=== PATIENT | female | born 1945 | race Caucasian/White ===

== ENCOUNTER 2016-11-14 09:25 | Inpatient (IN) | payer MEDICARE, BC ==
[2016-11-14] MEDS ORDERED: Ticagrelor* 90 MG TAB PO ONE (09:32)
[2016-11-14] MEDS ORDERED: Heparin for STEMI(*) 5,000 UNITS/ML 1 ML VIAL IV ONE (09:32)
[2016-11-14] MEDS ORDERED: Heparin(*) 1000 UNIT/ML 10 ML VIAL CATH LAB IV ONE (09:36)
[2016-11-14] MEDS ORDERED: VERAPAMIL 2.5 MG/ML 4 ML VIAL ONE (09:36)
--- NOTE | 2016-11-14 10:00 | ED ---
Jayda Candelaria Alfonso, scribed for Anamika Bearden MD on 11/14/16 at 0932 . 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 Consulted Dr. Kohler (detacher) at 0921 who will see the patient in the ED. This patient is a 71 year old F BIBA to [facility] with a chief complaint of CP since two days ago. She denies CP at time of evaluation. Pt states pain seemed somewhat positional. Pt denies SOB, nausea, diaphoresis. Pt was given ASA by EMS. Pt developed left UE paresthesia enroute which was relieved by 2 nitro enroute. Pt wth HTN - no DM, HLD, CVA, CAD, anticoagulation. Dr. Kohler ( detacher) present at bedside when pt arrives to the ED. She denies PMHx of CVA. PMHx of HTN, fibromyalgia, and osteoarthritis. Patients medication reviewed this visit. After evaluating the patient in the ED, Dr. Kohler admits the patient to the concrete mixing plant laborer. - History of Current Complaint Time Seen by Provider: 11/14/16 09:31 Hx Obtained From: Patient, EMS Onset/Duration: Started Days Ago - 2, Resolved Timing: Intermittent Initial Severity: Moderate Current Severity: Moderate Pain Intensity: 0 Pain Scale Used: 0-10 Numeric Chest Pain Radiates: Yes Chest Pain Radiates To:: Arm - left Aggravating Factor(s): Position Alleviating Factor(s): NTG 123, OTC Meds - ASA Associated Signs and Symptoms: Positive: Negative, Other: - Patient reports arm pain (resolved). - Allergy/Home Medications Allergies/Adverse Reactions: Allergies Allergy/AdvReac Type Severity Reaction Status Date / Time Sertraline [From Zoloft] Allergy Diarrhea Verified 01/08/15 14:37 Tramadol Allergy Hallucinati Verified 01/08/15 14:37 ons PMH/Surg Hx/FS Hx/Imm Hx Previously Healthy: Yes Endocrine/Hematology History: Denies: Hx Anticoagulant Therapy, Hx Diabetes Cardiovascular History: Reports: Hx Hypertension Denies: Hx Pacemaker/ICD History: Denies: Hx Renal Disease Musculoskeletal History: Reports: Other Musculoskeletal History - fibromyalgia, and osteoarthritis Sensory History: Denies: Hx Hearing Aid Neurological History: Denies: Hx CVA Psychiatric History: Denies: Hx Panic Disorder - Cancer History Hx Chemotherapy: No Hx Radiation Therapy: No - Surgical History Surgery Procedure, Year, and Place: DAVID KNEE REPLACEMENTS. DAVID HIP REPLACEMENT. CHOLECYTECTOMY - Family History Known Family History: Positive: Cardiac Disease, Diabetes - Social History Occupation: Unemployed Lives: Alone Alcohol Use: None Hx Substance Use: No Smoking Status (MU): Heavy Every Day Tobacco Smoker - 1 PPD Review of Systems Constitutional: Negative Positive: Photophobia ENT: Negative Positive: Chest Pain - resolved s/p ntg Respiratory: Negative Gastrointestinal: Negative Genitourinary: Negative Musculoskeletal: Negative Positive: Other - Left arm pain Skin: Negative Neurological: Negative Psychological: Normal All Other Systems Reviewed And Are Negative: Yes Physical Exam Triage Information Reviewed: Yes Vital Signs On Initial Exam: Initial Vitals Temp Pulse Resp BP Pulse Ox 98.1 F 107 20 127/75 98 11/14/16 09:40 11/14/16 09:40 11/14/16 09:40 11/14/16 09:40 11/14/16 09:40 Vital Signs Reviewed: Yes Appearance: Positive: Well-Appearing, No Pain Distress, Well-Nourished Skin: Positive: Warm, Skin Color Reflects Adequate Perfusion, Dry Head/Face: Positive: Normal Head/Face Inspection Eyes: Positive: Normal ENT: Positive: Hearing grossly normal Neck: Positive: Supple Respiratory/Lung Sounds: Negative: Unable to speak in full sentences Cardiovascular: Positive: RRR Musculoskeletal: Positive: Normal Neurological: Positive: Normal, Sensory/Motor Intact. Negative: Facial Droop, Slurred Speech Psychiatric: Positive: Normal AVPU Assessment: Alert - Paulina Coma Scale Best Eye Response: 4 - Spontaneous Best Motor Response: 6 - Obeys Commands Best Verbal Response: 5 - Oriented Diagnostics - Laboratory Result Diagrams: 11/14/16 09:55 11/14/16 09:55 Lab Statement: Any lab studies that have been ordered have been reviewed, and results considered in the medical decision making process. - EKG 0925 Cardiac Rate: NL - BPM 70 EKG Rhythm: Sinus Rhythm EKG Interpretation: ST ELEVATION IN ANTERIOR AND LATERAL LEADS. STEMI. Chest Pain Course/Dx - Course Assessment/Plan: Pt with 2 days chest pain and developed left arm pain enroute. Pt with given ASA and 2 nitro enroute with complete resolution. STEMI called enroute. Pt without complaint upon arrival to ED. Dr. Kohler / cath team at bedside upon arrival - pt to concrete mixing plant laborer. Heparin 4000unit bolus and Brilinta 180mg given per Dr. Kohler direction - Chest Pain Differential Diagnosis/HQI/PQRI: Acute IN - Diagnoses Provider Diagnoses: STEMI (ST elevation myocardial infarction) During the Visit The Following Alert/Code Occurred: STEMI - 917 PIT WORKER POWER SHOVEL - Provider Notifications Discussed Care Of Patient With: Beny Kohler Time Discussed With Above Provider: 09:21 Instructed by Provider To: Admit As Inpatient - Consulted Dr. Kohler ( detacher) at 920 who will see the patient in the ED. After evaluating the patient in the ED, Dr. Kohler admits the patient to the concrete mixing plant laborer. 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
[2016-11-14 10:10] LABS: Hematocrit 45 % (35-47); Hemoglobin 14.9 g/dl (12.0-16.0); Mean Corpuscular HGB Conc 33 g/dl (31-36); Mean Corpuscular Hemoglobin 29 pg (27-31); Mean Corpuscular Volume 87 fL (80-97); Mean Platelet Volume 8 um3 (7.4-10.4); Red Cell Distribution Width 14 % (10.5-15); White Blood Count 8.4 10^3/ul (3.5-10.8)
[2016-11-14] MEDS ORDERED: nitroGLYCERIN DRIP* 250 ML ONE ×2 (10:17→10:55)
[2016-11-14] MEDS ORDERED: Iohexol 350 (CONTRAST) 200 ML MDV IV ONE ×2 (10:22→10:55)
[2016-11-14 10:26] LABS: Albumin 3.6 g/dL (3.2-5.2); BUN/Creatinine Ratio 19.5 (8-20); Calcium 9.1 mg/dL (8.6-10.3); EGFR African American 88.4 (>60); EGFR Non-African American 68.7 (>60); Globulin 3.1 g/dL (2-4); Magnesium 1.7 mg/dL (1.9-2.7); Potassium 3.8 mmol/L (3.5-5.0); Total Bilirubin 0.4 mg/dL (0.2-1.0); Total Protein 6.7 g/dL (6.4-8.9)
[2016-11-14] MEDS ORDERED: Bivalirudin(*) 250 MG VIAL ONE (10:29)
[2016-11-14 10:38] LABS: Troponin I 0.31 ng/mL (<0.04)
[2016-11-14] MEDS ORDERED: Nitroglycerin TAB 0.4 MG* 0.4 MG TAB SL PRN (10:48)
[2016-11-14] MEDS ORDERED: Acetaminophen TAB* 325 MG PO PRN (10:50)
[2016-11-14] MEDS ORDERED: Docusate CAP* 100 MG PO PRN (10:50)
[2016-11-14] MEDS ORDERED: fentaNYL* 50 MCG/ML 2 ML VIAL (100 MCG VIAL) ONE (10:54)
[2016-11-14] MEDS ORDERED: Midazolam* 1 MG/ML 5 ML VIAL (5 MG) ONE (10:54)
[2016-11-14] MEDS ORDERED: Heparin 2 UNITS/ML IVPREMIX* 2,000 ML IV ONE (10:55)
[2016-11-14] MEDS ORDERED: Lidocaine 1% INJ* 10 MG/ML 30 ML SDV ONE (10:55)
[2016-11-14] MEDS ORDERED: Metoprolol Tartrate TAB* 25 MG PO SCH (11:00)
[2016-11-14] MEDS ORDERED: NS 0.9% 1000 ML* 1,000 ML IV SCH (11:00)
[2016-11-14] MEDS ORDERED: Atorvastatin* 80 MG TAB PO ONE (11:15)
[2016-11-14] MEDS: Metoprolol Succinate XL TAB* 50 MG PO SCH (13:10)
[2016-11-14] MEDS: oxyCODONE/Acetamin 5/325 MG* TAB PO PRN (15:08)
[2016-11-14] MEDS: Atorvastatin* 80 MG TAB PO SCH (16:10)
[2016-11-14] MEDS: Captopril TAB* 12.5 MG PO SCH ×2 (16:11→21:14)
[2016-11-14] MEDS ORDERED: nitroGLYCERIN DRIP* 25,000 MCG in PREMIX* 0 ML IV SCH (18:00)
[2016-11-14 20:29] LABS: Troponin I 6.87 ng/mL (<0.04)
--- NOTE | 2016-11-14 20:33 | HP ---
ADMISSION HISTORY AND PHYSICAL: DATE OF ADMISSION: 11/14/16 CHIEF COMPLAINT: The patient presents via ambulance in the field with ST- segment elevation, anterior wall myocardial infarction. HISTORY OF PRESENT ILLNESS: The patient is a 71-year-old female with no prior known cardiac history. Specifically, she denies any history of myocardial infarction, congestive heart failure, or significant heart rhythm disturbance. It should be noted that the patient was borderline belligerent throughout my evaluation, as well as her dealings with the emergency room staff and initially with the stucco laborer staff. The most that I could glean from her history that she has been having chest discomfort intermittent nature on and off for the past couple of days. Today it became constant, she called the paramedics. Initial EKG raised the question of mild ST-segment elevations and a STEMI alert was called in the field. Repeat EKG done in the emergency room confirms this with ST-segment elevations seen in the precordial leads. She was noted to be feeling moderately uncomfortable with chest discomfort and bilateral arm discomfort, denying any significant shortness of breath or diaphoresis. En route, she was given aspirin therapy. In the emergency room, she was given 4000 units bolus of heparin and 180 mg of Brilinta in preparation to proceed to the cardiovascular laboratory after the risks and benefits were explained and she wished to proceed. CARDIAC RISK FACTORS: Include, although she states no history of hypertension, she does have a history of hypertension. She denies any history of hyperlipidemia, denies any diabetes. She does smoke and denies any significant family history of early coronary artery disease. PAST MEDICAL HISTORY: Significant for fibromyalgia in addition to osteoarthritis and hypertension as mentioned. She has obesity and apparently has irritable bowel syndrome. In the somewhat remote past, she had a history of hematuria. She has history of back pain as well and a question was raised of underlying lung disease for which she is on bronchodilators. PAST SURGICAL HISTORY: 1. Status post cholecystectomy in 2010. 2. Status post knee surgery in 2010 with both knees replaced. 3. Status post hip surgery in 2009 to both hips. REVIEW OF SYSTEMS: Pertinent to proceeding with cardiovascular lab. She denies any significant history of bleeding. She denies any TIA or any stroke. She denies any history of kidney dysfunction and denies any history of allergy to contrast liquid. PHYSICAL EXAMINATION GENERAL: When I see her in the emergency room, reveals an obese female, borderline belligerent in nature as mentioned above. VITAL SIGNS: Reveal blood pressure 127/75, pulse 107, afebrile, respirations 20 , O2 saturation 98%. HEENT: Conjunctivae pink. Sclerae clear. Mouth reveals moist mucosa. NECK: Supple. No increased JVP. Carotid has fair upstroke in volume. I do not appreciate bruits or transmitted murmur. LUNGS: Reveal no accessory muscle usage. There is fair to good excursion. There is no active rales, rhonchi, or wheezes. HEART: Reveals no visible heaves. No palpable heaves or thrills. Normal S1, S2. No significant S3, S4 gallop. No significant murmur. ABDOMEN: Obese. Soft, nontender. I cannot accurately access for organomegaly. EXTREMITIES: Without clubbing, cyanosis or karla pitting edema. Peripheral pulses are intact. Femoral pulse present. No significant bruits. Right radial artery pulse present as well. NEUROLOGIC: The patient is alert, oriented with normal mentation. MUSCULOSKELETAL: Patient moves all extremities appropriate. PSYCHOLOGICAL: Patient is borderline belligerent as discussed above. DIAGNOSTIC STUDIES/LAB DATA: Electrocardiogram in the emergency room reveals sinus rhythm. Heart rate is 70, MI interval is 0.14, QRS is 0.08, QT is 0.39, axis is -15 degrees. There is J-point elevation diffusely seen in V1 through V3 , mildly into V4 and 5. OVERALL ASSESSMENT: Ms. Gage presents now with EKG findings suggestive with acute ST-segment elevation, anterior wall myocardial infarction. The risks and benefits were explained to her. She understands them and wishes to proceed. She has already received heparin, Brilinta and aspirin, and further management will be made pending the results of the cardiac catheterization in the stucco laborer. Blood work will be drawn for basic laboratory results in the cardiovascular laboratory. [id number]/[facility] #: [id number] MARIMAR
[2016-11-14] MEDS ORDERED: amLODIPine TAB* 5 MG ONE (21:01)
[2016-11-14] MEDS: amLODIPine TAB* 5 MG PO SCH (21:05)
[2016-11-14] MEDS: Ticagrelor* 90 MG TAB PO SCH (21:15)
[2016-11-14] MEDS: Zolpidem TAB* 5 MG PO PRN (23:26)
[2016-11-14] MEDS: Ondansetron INJ* 2 MG/ML VIAL IV PRN (23:26)
[2016-11-14 23:55] LABS: Troponin I 12.19 ng/mL (<0.04)
[2016-11-15] MEDS ORDERED: Captopril TAB* 12.5 MG PO ONE (00:28)
[2016-11-15] MEDS ORDERED: Diazepam TAB(*) 5 MG ONE (00:34)
[2016-11-15] MEDS ORDERED: Captopril TAB* 12.5 MG ONE (00:34)
[2016-11-15] MEDS: oxyCODONE/Acetamin 5/325 MG* TAB PO PRN ×2 (00:40→09:01)
--- NOTE | 2016-11-15 02:20 | CATH ---
CC: Laurie Macedo NP * CARDIAC CATHETERIZATION AND INTERVENTIONAL REPORT: DATE OF STUDY: 11/14/16 INDICATIONS FOR THE PROCEDURE: Patient with ST segment elevation, anterior wall myocardial infarction. DESCRIPTION OF PROCEDURE: The patient was interviewed and examined in the emergency room where the risks and benefits were explained. She understood them and wished to proceed. The patient had received 4000 units of heparin in the emergency room, 180 mg of Brilinta as well as a full dose aspirin by ambulance in route. The patient was brought to the cardiovascular laboratory where the right radial artery was assessed and found to be an eligible site for approach. The patient was prepped and draped in sterile fashion. Right radial artery area was anesthetized with 1% lidocaine, right radial artery was cannulated and a 6.5-Merit Prelude sheath was placed. The patient received 300 mcg of IV nitroglycerin as well as 3 mg of verapamil intraarterial. A 5-[place]atorial [place] TIG-4 catheter was advanced to the ascending aorta to perform right coronary artery angiography. This catheter was then exchanged for 6-[place] VL3.5 curve guide catheter, advanced to the left coronary artery, guiding views were obtained. ACT was shown and found to be subtherapeutic, as such patient was treated with Angiomax bolus and Angiomax drip was started. A 0.014 All Star wire was advanced down the left anterior descending artery through the total occlusion and balloon angioplasty was performed there into a more distal lesion. A 3.0 x 38 mm long Synergy drug-eluting stent was deployed following with high pressure noncompliant balloon inflation utilizing a 3.0 x 12 mm long NC Emerge balloon. Following this, a 5-Equatorial [place] pigtail catheter was advanced to the ascending aorta where central aortic pressure was recorded. Catheter was then passed across the aortic valve into the left ventricle where the left ventricular pressure was recorded. Left ventriculography was performed utilizing a total of 20 cc of Omnipaque dye at a rate of 10 cc per second. A catheter was pulled across the aortic valve to recheck gradient. At the end of the case, the catheter was removed and the sheath was removed and hemostasis was obtained with a Vasc Band in place. The reverse Barbeau was a C. The total contrast used was 210 cc of Omnipaque dye, the radiation exposure included 13.4 minutes of fluoro time. The air kerma radiation was 2083 milligray, the DAP radiation was 95920 microgray per meter squared. RESULTS: LEFT HEART CATHETERIZATION: Central aortic pressure was recorded at 140/90 with a mean of 113, left ventricular pressure 142 with left ventricular end-diastolic pressure of 13 to 16. LEFT VENTRICULOGRAPHY: Performed in the SHEARER projection revealed severe apical and distal anterior wall hypokinesis. Unfortunately, a run of ventricular tachycardia occurred making overall ejection fraction impossible to assess. The proximal portion of the LV had hyperdynamic LV function with some narrowing at the outflow tract. CORONARY ARTERIOGRAPHY: A. Left coronary artery: 1. Left main, widely patent. 2. Left anterior descending artery: Left anterior descending artery was found to be totally occluded in its midportion after the first two diagonal branches and first septal nutrition tech. On placement of the wire, a significant critical lesion was seen distal to this area, which did not respond significantly to nitroglycerin. The rest of the left anterior descending artery had no significant lesion seen. 3. Circumflex artery - a nondominant vessel supplying a very thin first and second obtuse marginal branches with 3 moderate size obtuse marginal branches and a middle segment continuing at the 2 thin low lying posterior left ventricular branches. There was a narrowing seen within the circumflex area in its midportion of approximately 45 to 50%. This was just after the first of the 3 mid obtuse marginal branches. The rest of the circumflex had mild luminal irregularities. B. Right coronary artery - a dominant vessel supplying multiple acute marginal branches and ending in a posterior descending artery. The proximal portion of the right coronary artery had a narrowing noted to be as much as 70% to 75%. The rest of the right coronary artery had no significant obstruction seen. INTERVENTION INTO MID LAD AND MID TO DISTAL LAD: Successful reconstitution of totally occluded LAD and intervention into 80% to 85% mid to distal lesion in LAD with balloon angioplasty and placement of a 3.0 x 38 mm long Synergy drug-eluding stent post dilated 3.1 to 3.2 mm with a JELENA-3 flow, no dissection seen and 0% residual stenosis. OVERALL ASSESSMENT: Multivessel disease with totally occluded mid left anterior descending reconstituted with balloon angioplasty and stent placement as described above. Residual significant right coronary artery lesion will need to be addressed at some point in time. Moderate disease noted in the circumflex artery with consideration of possible fractional flow reserve analysis of that lesion as well. Dual antiplatelet therapy with aggressive cholesterol lowering agents in addition to aggressive weight reduction are paramount to her care. Smoking cessation is an absolute must. Beta malcolm and EMY inhibitor therapy will be instituted as well especially in light of the anterior wall myocardial infarction with her history of hypertension. [id number]/[facility] #: [id number] MTDD
[2016-11-15] MEDS ORDERED: Potassium Chlor TAB* 20 MEQ TAB.ER PO ONE (03:05)
[2016-11-15] MEDS ORDERED: Magnesium Sulfate 1 GM IV* 1 GM/100 ML BAG IV ONE (03:30)
[2016-11-15 06:39] LABS: Hematocrit 42 % (35-47); Mean Corpuscular HGB Conc 33 g/dl (31-36); Mean Corpuscular Hemoglobin 29 pg (27-31); Mean Corpuscular Volume 87 fL (80-97); Mean Platelet Volume 8 um3 (7.4-10.4); Red Blood Count 4.83 10^6/ul (4.0-5.4); Red Cell Distribution Width 14 % (10.5-15); White Blood Count 8.3 10^3/ul (3.5-10.8)
[2016-11-15 06:53] LABS: Albumin 3.5 g/dL (3.2-5.2); BUN/Creatinine Ratio 17.3 (8-20); Calcium 8.9 mg/dL (8.6-10.3); EGFR Non-African American 76.2 (>60); Globulin 2.9 g/dL (2-4); HDL Cholesterol 46.5 mg/dL; Potassium 3.7 mmol/L (3.5-5.0); Total Bilirubin 0.6 mg/dL (0.2-1.0); Total Protein 6.4 g/dL (6.4-8.9)
[2016-11-15 06:57] LABS: Troponin I 12.59 ng/mL (<0.04)
[2016-11-15] MEDS ORDERED: Perflutren Lipid Microsphere* 3 ML VIAL ONE (07:51)
[2016-11-15] MEDS: Diazepam TAB(*) 5 MG PO PRN (08:38)
[2016-11-15] MEDS: Omeprazole CAP* 20 MG PO SCH (08:38)
[2016-11-15] MEDS: Metoprolol Succinate XL TAB* 50 MG PO SCH (08:39)
[2016-11-15] MEDS: Ticagrelor* 90 MG TAB PO SCH ×2 (08:39→21:04)
[2016-11-15] MEDS: Aspirin Low Dose CHEW TAB* 81 MG PO SCH (08:39)
[2016-11-15] MEDS: Lisinopril TAB* 10 MG PO SCH (08:40)
[2016-11-15] MEDS: amLODIPine TAB* 5 MG PO SCH (08:40)
[2016-11-15] MEDS ORDERED: Captopril TAB* 12.5 MG PO SCH (09:00)
--- NOTE | 2016-11-15 10:12 | ECHO ---
Patient: USMAN CEDEÑO [facility] Rec#: [id number] : 1945 Date: 11/15/2016 Age: 71y Height: 167.6 cm / 66.0 in Weight: 117.9 kg / 259.9 lbs Sex: F BSA: 2.2 Room#: ICU 8 Admit Date#: 11/14/2016 Type: Inpatient Referring: Beny Kohler MD Reading: Beny Kohler MD Immigration Coordinator: Ella Castellanos RN RDCS CC: Ann Joya MD Transthoracic Echocardiogram Indication: Anterior wall STEMI, S/P PCI BP: 158/80 HR: 63 Rhythm: NSR Findings History: HTN, smoker, morbid obesity, fibromyalgia Technical Comments: The study is technically limited due to poor parasternal windows. The study is technically limited due to patient body habitus. The study is technically limited due to the patient's smoking history. Completed at 0925. Left Ventricle: The left ventricular chamber size is normal. Mild to moderate concentric left ventricular hypertrophy is observed. There is increased basal septal hypertrophy noted without evidence of an increased gradient across the left ventricular outflow tract. The septal knuckle measures 1.8 cm. There is a focal wall motion abnormality present.There is severe distal anterior, anterolateral wall and distal inferior wall hypokinesis with akinesis of the apex and mid to distal anteroseptal wall. The proximal to mid anterioor wall and rest of the ventricle contract normally. There is mild to moderately decreased left ventricular systolic function. The estimated ejection fraction is 35-40%. Visually estimated LVEF is closer to 40 %. Abnormal left ventricular diastolic filling is observed, consistent with impaired relaxation. Although the absence of left atrial enlargement suggest this finding may not have clinical significance. Left Atrium: The left atrial chamber size is normal. Right Ventricle: The right ventricular chamber size and systolic function are within normal limits. Right Atrium: The right atrial cavity size is normal. Aortic Valve: The aortic valve leaflets are mildly thickened. There is no evidence of aortic regurgitation. There is no evidence of aortic stenosis. Mitral Valve: The mitral valve leaflets are mildly thickened. There is trace to mild mitral regurgitation. There is no evidence of mitral stenosis. Tricuspid Valve: The tricuspid valve structure is not well visualized. There is trace tricuspid regurgitation. Unable to estimate the right ventricular systolic pressure. Pulmonic Valve: The pulmonic valve structure is not well visualized. There is trace to mild pulmonic regurgitation. There is no pulmonic stenosis. Pericardium: There is no significant pericardial effusion. A pericardial fat pad is visualized. Aorta: There is no dilatation of the ascending aorta. The aortic arch is not well visualized. The aortic root is normal in size. Pulmonary Artery: The main pulmonary artery is not well visualized. Venous: The inferior vena cava is not visualized. Conclusions Poor quality parastenal views for interpretation due to body habitus. Mild to moderate concentric left ventricular hypertrophy is observed. There is mild to moderately decreased left ventricular systolic function. The estimated ejection fraction is 35-40%. Visually estimated LVEF is closer to 40 %. There is a focal wall motion abnormality present as described above. There is trace to mild mitral regurgitation. There is trace tricuspid regurgitation. Compared to report of prior study from 08/09/2010, the focal wall motion abnormality is new. Measurements Name Value Normal Range RVDdMajor (2D) 3.2 cm (2.2 - 4.4) RAd ISD 4CH 4.7 cm (3.4 - 4.9) RA (A4C)W 3 cm (2.9 - 4.6) IVSd (2D) 1.4 cm (0.6 - 1) LVPWd (2D) 1.2 cm (0.6 - 1) LVIDd (2D) 4.8 cm (3.6 - 5.4) Aortic Annulus 2.4 cm (1.4 - 2.6) Ao root diameter (2D) 2.6 cm (2.1 - 3.5) Ascending Ao 3.1 cm (2.1 - 3.4) LA dimension (AP) 2D 3.4 cm (2.3 - 3.8) LAd ISD 4CH 5.7 cm (2.9 - 5.3) LA ISD 4CH W 3.3 cm (2.5 - 4.5) Name Value Normal Range LA ESV SP 4CH (A/L) 48 ml - LA ESV SP 2CH (A/L) 58 ml - LA ESV BP (A/L) 53 ml - LA ESV BP (A/L) index 24 ml/m2 - LA ESV SP 4CH (MOD) 48 ml - LA ESV SP 2CH (MOD) 54 ml - Name Value Normal Range MV E-wave Vmax 0.79 m/sec - MV deceleration time 170 msec - MV A-wave Vmax 1.1 m/sec - MV E:A ratio 0.72 ratio - LV septal e' Vmax 0.06 m/sec - LV lateral e' Vmax 0.07 m/sec - LV E:e' septal ratio 13.2 ratio - LV E:e' lateral ratio 11.3 ratio - Name Value Normal Range AV Vmax 1.7 m/sec - AV VTI 37.2 cm - AV peak gradient 10.5 mmHg - AV mean gradient 6.7 mmHg - LVOT Vmax 1.3 m/sec - LVOT VTI 27.2 cm - LVOT peak gradient 6.5 mmHg - LVOT mean gradient 3.5 mmHg - Name Value Normal Range PV Vmax 0.77 m/sec -
[2016-11-15 13:42] LABS: Troponin I 13.58 ng/mL (<0.04)
[2016-11-15] MEDS: Atorvastatin* 80 MG TAB PO SCH (18:34)
[2016-11-15] MEDS: Ondansetron INJ* 2 MG/ML VIAL IV PRN (18:34)
[2016-11-15] MEDS: Zolpidem TAB* 5 MG PO PRN (22:54)
[2016-11-16] MEDS: Omeprazole CAP* 20 MG PO SCH (05:39)
[2016-11-16 07:09] LABS: BUN/Creatinine Ratio 18.5 (8-20); Calcium 9.7 mg/dL (8.6-10.3); EGFR African American 89.6 (>60); EGFR Non-African American 69.7 (>60); Potassium 4.4 mmol/L (3.5-5.0)
[2016-11-16 07:46] LABS: Troponin I 7.1 ng/mL (<0.04)
[2016-11-16 08:40] LABS: Magnesium 2.1 mg/dL (1.9-2.7)
[2016-11-16] MEDS: Enoxaparin(*) 40 MG/0.4 ML SYR SUBCUT SCH (09:04)
[2016-11-16] MEDS: Ticagrelor* 90 MG TAB PO SCH ×2 (09:05→20:32)
[2016-11-16] MEDS: amLODIPine TAB* 5 MG PO SCH (09:05)
[2016-11-16] MEDS: Aspirin Low Dose CHEW TAB* 81 MG PO SCH (09:06)
[2016-11-16] MEDS: Metoprolol Succinate XL TAB* 50 MG PO SCH (09:06)
[2016-11-16] MEDS: Lisinopril TAB* 10 MG PO SCH (09:06)
[2016-11-16] MEDS: Atorvastatin* 80 MG TAB PO SCH (18:13)
[2016-11-16] MEDS: Metoprolol Succinate XL TAB* 25 MG PO SCH (20:31)
[2016-11-16] MEDS ORDERED: Metoprolol Succinate XL TAB* 25 MG PO SCH (21:00)
[2016-11-16] MEDS: Zolpidem TAB* 5 MG PO PRN (22:56)
[2016-11-17] MEDS: oxyCODONE/Acetamin 5/325 MG* TAB PO PRN (01:59)
[2016-11-17 07:11] LABS: BUN/Creatinine Ratio 21.8 (8-20); Calcium 9.3 mg/dL (8.6-10.3); EGFR African American 93.6 (>60); EGFR Non-African American 72.8 (>60); Potassium 4.2 mmol/L (3.5-5.0)
[2016-11-17] MEDS: Omeprazole CAP* 20 MG PO SCH (07:33)
[2016-11-17] MEDS: Metoprolol Succinate XL TAB* 50 MG PO SCH (09:30)
[2016-11-17] MEDS: Aspirin Low Dose CHEW TAB* 81 MG PO SCH (09:31)
[2016-11-17] MEDS: Lisinopril TAB* 10 MG PO SCH (09:31)
[2016-11-17] MEDS: amLODIPine TAB* 5 MG PO SCH (09:31)
[2016-11-17] MEDS: Ticagrelor* 90 MG TAB PO SCH ×2 (09:31→20:46)
[2016-11-17] MEDS: Enoxaparin(*) 40 MG/0.4 ML SYR SUBCUT SCH (09:34)
[2016-11-17] MEDS: Diazepam TAB(*) 5 MG PO PRN ×2 (09:37→19:12)
[2016-11-17] MEDS: Atorvastatin* 80 MG TAB PO SCH (19:13)
[2016-11-17] MEDS: Metoprolol Succinate XL TAB* 25 MG PO SCH (20:45)
[2016-11-17] MEDS: Zolpidem TAB* 5 MG PO PRN (22:57)
[2016-11-18] MEDS: Omeprazole CAP* 20 MG PO SCH (05:34)
[2016-11-18] MEDS: oxyCODONE/Acetamin 5/325 MG* TAB PO PRN (05:34)
[2016-11-18 07:44] VITALS: BP 110/75
[2016-11-18] MEDS: Lisinopril TAB* 10 MG PO SCH (08:49)
[2016-11-18] MEDS: Aspirin Low Dose CHEW TAB* 81 MG PO SCH (08:49)
[2016-11-18] MEDS: Metoprolol Succinate XL TAB* 50 MG PO SCH (08:49)
[2016-11-18 08:50] LABS: BUN/Creatinine Ratio 19.5 (8-20); Calcium 9.6 mg/dL (8.6-10.3); EGFR African American 82.5 (>60); EGFR Non-African American 64.2 (>60); Potassium 4.3 mmol/L (3.5-5.0)
[2016-11-18] MEDS: Ticagrelor* 90 MG TAB PO SCH (08:50)
[2016-11-18] MEDS: Enoxaparin(*) 40 MG/0.4 ML SYR SUBCUT SCH (08:57)
--- NOTE | 2016-11-18 16:30 | DS ---
CC: Laurie Macedo NP; Dr. Kohler DISCHARGE SUMMARY: DATE OF ADMISSION: 11/14/16 DATE OF DISCHARGE: 11/18/16 PRIMARY CARE PHYSICIAN: Laurie Macedo NP PORTFOLIO STRATEGIST: Dr. Kohler. DISCHARGE DIAGNOSES: 1. Anterior wall ST segment elevation infarct. 2. Left ventricular systolic dysfunction. 3. Obesity. 4. Fibromyalgia. 5. Hypertension. 6. Osteoarthritis. 7. Irritable bowel. 8. Chronic back pain. 9. Chronic lung disease. CONDITION ON DISCHARGE: Stable. PROCEDURES: Cardiac cath, stent placement, Dr. Kohler, LAD 3.0 x 38 mm Synergy drug-eluting stent, 11/14/16, right radial artery access, echocardiogram, telemetry. DISCHARGE MEDICATIONS: 1. Aspirin 81 mg daily. 2. Lipitor 80 mg daily. 3. Lisinopril 10 mg daily. 4. Toprol-XL 75 mg daily. 5. Nitroglycerin 0.4 sublingual p.r.n. 6. Brilinta 90 mg b.i.d. FOLLOWUP: With Dr. Kohler next week, 11/23/16, at 1540 hours, MOB 101. HISTORY: See H and P. LABORATORY DATA/DIAGNOSTIC STUDIES: Admission CBC normal. Hemoglobin at 14.9, hematocrit 45, laurie l platelet count. Normal BMP with creatinine of 0.81. Her troponin peaked at 13.58. Presenting li pids, total cholesterol 156, triglycerides 139, LDL 82, HDL 46.5. EKG on 11/18/16 shows improvement in the precordial T wave inversion, and persisting QS from V1 thro ugh V5 with low voltage. Echocardiogram on 11/15/16 reported EF of 35% to 40% with anterior, gary lateral, and distal inferior hypokinesis with apical akinesis. HOSPITAL COURSE: She presented with an ST elevation infarct, underwent catheterization by Dr. Marcia stephens, see his report for details. The LAD occlusion was treated with 3 x [address] mm Synergy drug-eluting st ent. She had an approximately 75% RCA stenosis, which was not treated in the same sitting. Access was radial. Postprocedure, there were no complications. She had no recurrence of chest pain, had no heart failure symptoms, had no arrhythmias, hemodynamic issues. Her radial cath site is stable. S he is tolerating a medical regimen, is ambulating with a walker because of chronic knee pain. She r eceived full discharge instructions. On the day of discharge, her blood pressure is 110/75, heart r ate in the 60 to 70s, in sinus rhythm. Lungs are clear. Cardiac exam is normal, she has no edema. BMP on 11/18/16 is normal except for random blood sugar of 118. Throughout her hospital stay, rand om as well as fasting sugars were elevated. She was discharged in stable condition. [id number]/[facility] #: [id number]
== END 2016-11-18 13:35 | disposition home or self-care (01) | DRG 247 ==
LOC: ED 09:25 → ICU 10:48 → MEDTELE 11-17 14:34
PROVIDERS: ADMIT Internal Medicine Cardiovascular Disease; ATTEND Internal Medicine Cardiovascular Disease
PROC: B2111ZZ Fluoroscopy of Multiple Coronary Arteries using Low Osmolar Contrast (ICD-10-PCS; 2016-11-14)
PROC: B2151ZZ Fluoroscopy of Left Heart using Low Osmolar Contrast (ICD-10-PCS; 2016-11-14)
PROC: 4A023N7 Measurement of Cardiac Sampling and Pressure, Left Heart, Percutaneous Approach (ICD-10-PCS; 2016-11-14)
PROC: 027034Z Dilation of Coronary Artery, One Artery with Drug-eluting Intraluminal Device, Percutaneous Approach (ICD-10-PCS; principal; 2016-11-14 09:30)
DX: I21.09 ST elevation (STEMI) myocardial infarction involving other coronary artery of anterior wall (principal); I10 Essential (primary) hypertension; E66.9 Obesity, unspecified; M19.90 Unspecified osteoarthritis, unspecified site; M79.7 Fibromyalgia; K58.9 Irritable bowel syndrome, unspecified; Z96.653 Presence of artificial knee joint, bilateral; Z96.643 Presence of artificial hip joint, bilateral; F17.210 Nicotine dependence, cigarettes, uncomplicated; R40.2362 Coma scale, best motor response, obeys commands, at arrival to emergency department; R40.2142 Coma scale, eyes open, spontaneous, at arrival to emergency department; R40.2252 Coma scale, best verbal response, oriented, at arrival to emergency department; I25.10 Atherosclerotic heart disease of native coronary artery without angina pectoris; I51.9 Heart disease, unspecified; G89.29 Other chronic pain; M54.9 Dorsalgia, unspecified; J98.4 Other disorders of lung; R73.9 Hyperglycemia, unspecified; M25.569 Pain in unspecified knee; Z79.02 Long term (current) use of antithrombotics/antiplatelets; Z79.82 Long term (current) use of aspirin; Z56.0 Unemployment, unspecified; Z82.49 Family history of ischemic heart disease and other diseases of the circulatory system; Z83.3 Family history of diabetes mellitus; Z88.6 Allergy status to analgesic agent; Z90.49 Acquired absence of other specified parts of digestive tract; Z68.41 Body mass index [BMI] 40.0-44.9, adult
CPT/HCPCS: 36415; 80048; 80053; 80061; 82550; 82553; 83735; 84484; 85025; 85610; 85730; 87641; 93005; 93306; 99156; 99157; A9270-GY; C1725; C1769; C1876; C1887; C9606-LD; J0583; J1644; J1650; J2001; J2250; J2405; J3010; J3475